=== PATIENT | female | born 2000 | race African-American/Black ===

== ENCOUNTER 2021-06-13 07:40 | Emergency (ER) | payer OTHER ==
[2021-06-13 07:55] VITALS: BP 110/81; BMI 25.0
[2021-06-13] MEDS ORDERED: ACETAMINOPHEN 325 MG TABLET (FP) PO ONE (08:09)
[2021-06-13] MEDS ORDERED: ACETAMINOPHEN 325 MG TABLET (FP) ONE (08:35)
[2021-06-13 09:03] VITALS: PULSE 109; TEMP 98.5
== END 2021-06-13 09:03 | disposition home or self-care (01) ==
LOC: JER 07:40
DX: B34.9 Viral infection, unspecified (principal)
CPT/HCPCS: 87804; 99283-25; C9803; U0003; U0005